=== PATIENT | male | born 1955 | race Two or more races ===

== ENCOUNTER 2024-04-04 11:37 | Emergency (ER) | payer OTHER ==
[~2024-04-04] VITALS: Ht 172.7 cm; Wt 86.4 kg
[2024-04-04 13:50] VITALS: BP 150/88; PULSE 68; RESP 16; TEMP 97.6; O2SAT 98
[2024-04-04] MEDS ORDERED: ERY05OO OP (14:13)
[2024-04-04] MEDS ORDERED: POLY1DRO14 OP (14:13)
--- NOTE | 2024-04-04 14:13 | ED.PDOC ---
Eye-HPI HPI Comments 68 year old male presents for FB sensation to the right eye x 3 days after doing yard work. Feels piece of grass Has not tried OTC medication Denies vision changes Denies eye discharge Denies hearing changes, nausea, vomiting Denies eye pain with movement, eye pain in general, difficulty keeping eye open, feeling of something stuck in the eye, sensitivity to light Chief Complaint: Eye Problem Time Seen by MD: 12:54 Reviewed Notes: Nurses Notes, Medications, Allergies Allergies: Coded Allergies: NO KNOWN ALLERGIES (Unverified , 04/04/24) Home Meds Active Scripts Polyethylene Glycol-Propylene (Lubricating Eye Drops 0.4-0.3 %) 1 Joshua Joshua, 1 JOSHUA OP Q2HPRN PRN for 30 Days, #1 JOSHUA 0 Refills Prov:DAISY ARROYO [employer] EDUCATION INSTRUCTOR 04/04/24 Erythromycin (Erythromycin) 5 Mg/Gm Oin, 1 APPLIC OP TID for 7 Days, #3.5 OIN 0 Refills Prov:DAISY ARROYO [employer] EDUCATION INSTRUCTOR 04/04/24 Information Source: Patient Mode of Arrival: Ambulatory Social History Smoker: Non-Smoker Alcohol: Denies ETOH Use Drugs: Denies Drug Use All Other Systems: Reviewed and Negative (Per HPI) Physical Exam General Appearance: No Apparent Distress, Normal HEENT: Normal ENT Inspection, PERRL/EOMI (R eye: No periorbital swelling erythema. On lid eversion no foreign bodies appreciated. No conjunctival injection. Pupils equal round reactive to light and accommodation. Extraocular movements intact), Pharynx Normal, TMs Normal Neck: Full Range of Motion, Non-Tender, Normal, Normal Inspection Respiratory: Chest Non-Tender, Lungs Clear, No Accessory Muscle Use, No Respiratory Distress, Normal Breath Sounds Cardiovascular: No Murmur, No Gallop, Regular Rate/Rhythm Breast Exam: Deferred Gastrointestinal: No Organomegaly, Non Tender, No Pulsatile Mass, Normal Bowel Sounds, Soft Genitalia: Deferred Pelvic: Deferred Rectal: Deferred Extremities: No calf tenderness, Normal capillary refill, Normal inspection, Normal range of motion, Non-tender, No pedal edema Musculoskeletal : Apperance: Normal Neurologic: Alert, knowledge analyst II-XII nml as Tested, No Motor Deficits, Normal Affect, Normal Mood, No Sensory Deficits Cerebellar Function: Normal Reflexes: Normal Skin: Dry, Normal Color, Warm Lymphatic: No Adenopathy Was a procedure done? Was a procedure done?: No EENT DIFF Eye: Allergic, Corneal Abrasion, Foreign Body-Lid X-Ray, Labs, Meds, VS Vital Signs Date Time Temp Pulse Resp B/P (MAP) Pulse Ox O2 Delivery O2 Flow Rate FiO2 04/04/24 13:50 97.6 68 16 150/88 (108) 98 97.6 04/04/24 12:58 65 18 96 Room Air 04/04/24 12:58 97.9 65 18 172/92 (118) 97.9 04/04/24 11:53 97.9 62 17 154/82 (106) 94 X-Ray, Labs, Meds, VS Comment Differential diagnosis considered includes: corneal abrasion, uveitis, foreign body, retinal detachment unlikey given age and no history flashes nor floaters. Patient alert, vss, well appearing. PERRLA, EOMi, visual acuity not affected. Patient appears to have an uncomplicated corneal abrasion. No evidence of foreign body, globe rupture, iritis, conjunctivitis or any other process requiring immediate medical or surgical intervention at this time. Likely due to exposure to particle without wearing protective glases Vitals normal and reassuring Slit lamp exam with evidence of corneal abrasion Patient had good improvement with proparacaine Patient without contact lens use or other significant risk factor for pseudomonal infection, will prescribe topical erythromycin On reevaluation, patient had symptomatic improvement. Patient is stable for discharge at this time. External notes reviewed. Test results and diagnostic imaging interpreted. All diagnostic findings, discharge care, education and instructions provided Follow-up with PCP in 2 to 3 days Patient verbalized understanding and agreed to treatment plan Vital signs stable, afebrile, no acute distress noted Patient ambulatory with strong steady gait Advised to return precautions for any new or worsening symptoms, return to ER immediately for re-evaluation Patient is aware that the purpose of this visit was for an acute medical emergency requiring emergent stabilization. Chronic conditions, including malignancies have not been ruled out. Patient is instructed to follow up with PCP as directed and discharge instructions for continued care and workup. If unable to arrange follow-up, patient is to return to the emergency department for reassessment. Patient (parent or legal guardian if applicable) was given verbal and written discharge instructions and acknowledges understanding. Time of 1ST Reevaluation: 14:00 Reevaluation 1ST: Improved Patient Education/Counseling: Diagnosis, Treatment Family Education/Counseling: Diagnosis, Treatment Departure 1 Departure Time of Disposition: 14:12 Impression: Primary Impression: Foreign body sensation, right eye Disposition: HOME / SELF CARE / HOMELESS Condition: Fair e-Prescriptions Polyethylene Glycol-Propylene (Lubricating Eye Drops 0.4-0.3 %) 1 Joshua Joshua 1 JOSHUA OP Q2HPRN PRN for 30 Days, #1 JOSHUA 0 Refills Prov: DAISY ARROYO [employer]UCATION INSTRUCTOR 04/04/24 Erythromycin (Erythromycin) 5 Mg/Gm Oin 1 APPLIC OP TID for 7 Days, #3.5 OIN 0 Refills Prov: DAISY ARROYO [employer]UCATION INSTRUCTOR 04/04/24 Critical Care Note Critical Care Time?: No Stability Stability form required: No Heart Score Heart Score: Heart Score Response (Comments) Value History N/A 0 EKG N/A 0 Age N/A 0 Risk Factors N/A 0 Troponin N/A 0 Total 0 DAISY ARROYO [employer]UCATION INSTRUCTOR Apr 04, 2024 14:13
== END 2024-04-04 14:23 | disposition home or self-care (01) ==
LOC: ER 11:37
DX: H57.8A1 Foreign body sensation, right eye (principal)